=== PATIENT | female | born 1960 | race Caucasian/White ===

== ENCOUNTER 2021-05-09 15:49 | Emergency (ER) | payer BC ==
[~2021-05-09] VITALS: Ht 165.1 cm; Wt 88.5 kg
[2021-05-09] MEDS ORDERED: LEVO-T25 MCG PO (16:05)
[2021-05-09] MEDS ORDERED: MELOXICAM7.5 MG PO (16:05)
[2021-05-09] MEDS ORDERED: CYMBALTA20 MG PO (16:05)
[2021-05-09 17:25] VITALS: BP 140/83
== END 2021-05-09 17:25 | disposition home or self-care (01) ==
LOC: M.ERS 15:49
DX: M54.2 Cervicalgia (principal); R51.9 Headache, unspecified; E03.9 Hypothyroidism, unspecified; Z79.899 Other long term (current) drug therapy